=== PATIENT | male | born 1980 | race African-American/Black ===

== ENCOUNTER 2022-07-30 09:54 | Emergency (ER) | payer SELFPAY ==
[2022-07-30] MEDS ORDERED: Acetaminophen 500 MG TAB ONE (11:47)
== END 2022-07-30 13:09 | disposition home or self-care (01) ==
LOC: ERS 09:54
DX: J06.9 Acute upper respiratory infection, unspecified (principal); Z20.822 Contact with and (suspected) exposure to COVID-19; F17.290 Nicotine dependence, other tobacco product, uncomplicated
CPT/HCPCS: 87804; 99283; U0003; U0005